=== PATIENT | female | born 1960 | race Caucasian/White ===

== ENCOUNTER 2018-11-22 16:25 | Outpatient (CLI) | payer MEDICAID, SELFPAY ==
--- NOTE | 2018-11-22 09:45 | DI.RAD_ITS ---
SYMPTOM/DIAGNOSIS: RT LOWER LOBE RALES, PNEUMONIA J18.9 PA AND LATERAL CHEST: The lungs are well expanded and free of infiltrate. There is no pleural effusion. The cardiovascular structures are intact. The mediastinum and tracheal air column are well maintained. SUMMARY: Normal chest.
== END 2018-11-22 16:45 ==
PROVIDERS: PCP Family Medicine; Visit Provider Family Medicine
DX: R09.89 Other specified symptoms and signs involving the circulatory and respiratory systems (principal); J18.9 Pneumonia, unspecified organism
CPT/HCPCS: 71046

== ENCOUNTER 2019-05-01 01:19 | Outpatient (CLI) | payer MEDICAID, SELFPAY ==
--- NOTE | 2019-05-01 06:52 | DI.US_ITS ---
SYMPTOM/DIAGNOSIS: FATTY FOOD INTOLERANCE, WITH RUQ PAIN, R10.11 ABDOMEN ULTRASOUND: There are no prior comparison exams. The liver is mildly enlarged and shows increased echogenicity consistent with fatty infiltration. No focal liver lesions or biliary dilatation is seen. The gallbladder is unremarkable, without evidence of stones or wall thickening. The pancreas, spleen, kidneys and aorta appear normal. No ascites is seen. The portal venous flow is in the appropriate direction. IMPRESSION: Mildly enlarged fatty liver. No gallbladder abnormality is seen.
== END 2019-05-01 01:39 ==
PROVIDERS: PCP Family Medicine; Visit Provider Family Medicine
DX: R10.11 Right upper quadrant pain (principal); K90.49 Malabsorption due to intolerance, not elsewhere classified; K76.0 Fatty (change of) liver, not elsewhere classified; R16.0 Hepatomegaly, not elsewhere classified
CPT/HCPCS: 76700

== ENCOUNTER 2019-05-22 16:10 | Outpatient (CLI) | payer MEDICAID, SELFPAY ==
[2019-05-22 17:22] LABS: BUN 12 mg/dL (7-18); CREATININE 1.04 mg/dL (0.55-1.02); Estimated GFR 54.05 (mL/min/1.73m2)
[2019-05-22 17:45] LABS: ESR 25 mm/hr (0-30)
[2019-05-25 12:11] LABS: SS-A Antibody 88.5 Units (<20)
[2019-05-25 12:12] LABS: SS-B (La) Ab, IgG 48.5 Units (<20)
== END 2019-05-22 16:30 ==
PROVIDERS: PCP Family Medicine; Visit Provider Otolaryngology Otolaryngology/Facial Plastic Surgery
DX: H93.A1 Pulsatile tinnitus, right ear (principal); R09.89 Other specified symptoms and signs involving the circulatory and respiratory systems; R68.2 Dry mouth, unspecified
CPT/HCPCS: 36415; 84520; 85652; 82565; 86235

== ENCOUNTER 2019-06-13 02:19 | Outpatient (CLI) | payer MEDICAID, SELFPAY ==
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
== END 2019-06-13 02:39 ==
PROVIDERS: PCP Family Medicine; Visit Provider Dietitian, Registered
DX: K75.81 Nonalcoholic steatohepatitis (NASH) (principal); Z71.3 Dietary counseling and surveillance
CPT/HCPCS: 97802

== ENCOUNTER 2019-06-21 01:43 | Outpatient (CLI) | payer MEDICAID, SELFPAY ==
--- NOTE | 2019-06-21 14:20 | DI.MRI_ITS ---
EXAM: MR ANGIO BRAIN WO CLINICAL HISTORY: PULSATILE TINNITUS OF RT EAR, H93.A1. TECHNIQUE: 3D fsps-fe-nefejz sequence was performed. COMPARISON: No exams were available for comparison FINDINGS: The [place] of [place] vasculature appears intact. There is no evidence of occlusion, aneurysm or sign ificant stenosis. The distal internal carotid arteries are unremarkable. IMPRESSION: Negative MRA of the brain.
--- NOTE | 2019-06-21 15:12 | DI.MRI_ITS ---
EXAM: MR ANGIO NECK WO/W CLINICAL HISTORY: PULSATILE TINNITUS OF RT EAR, H93.A1. TECHNIQUE: 2D and 3D beja-by-ywosja sequences were performed. COMPARISON: No exams were available for comparison FINDINGS: There is plaque at the right common carotid bulb and internal carotid artery creating a stenosis of a pproximately 75 percent. There is plaque at the proximal left internal carotid artery causing a diam eter narrowing of less than 50 percent. More distally, the internal carotid arteries are normal in d iameter. There is no evidence of dissection. The vertebral arteries appear intact. IMPRESSION: Mild stenosis of the proximal left internal carotid artery. Severe stenosis of proximal right internist al carotid.
[2019-06-21] MEDS: Gadoterate meglumine 20 ML VIAL IVP (15:26)
== END 2019-06-21 02:03 ==
PROVIDERS: PCP Family Medicine; Visit Provider Physician Assistant
DX: H93.A1 Pulsatile tinnitus, right ear (principal); I65.23 Occlusion and stenosis of bilateral carotid arteries
CPT/HCPCS: 70544; 70549

== ENCOUNTER 2020-04-10 03:39 | Outpatient (CLI) | payer MEDICAID, SELFPAY ==
[2020-04-10 09:27] LABS: ALT 30 U/L (14-59); AST 29 U/L (15-37); Albumin 3.6 g/dL (3.4-5.0); Alkaline Phosphatase 70 U/L (46-116); Anion Gap 3.9 mmol/L (3-11); BUN 15 mg/dL (7-18); Bilirubin, Total 0.5 mg/dL (0.2-1.0); CO2 31.1 mmol/L (21.0-32.0); CREATININE 0.92 mg/dL (0.55-1.02); Chloride 105 mmol/L (98-107); Glucose 79 mg/dL (74-106); Sodium 140 mmol/L (136-145); Total Protein 7.3 g/dL (6.4-8.2)
[2020-04-15 11:59] LABS: IgA 129 mg/dL (85-499); Interpretation (See Note); Tissue Transglutaminase IgA <1.2 U/mL (<4.0)
== END 2020-04-10 03:59 ==
PROVIDERS: PCP Family Medicine; Visit Provider Family Medicine
DX: K90.41 Non-celiac gluten sensitivity (principal); K75.81 Nonalcoholic steatohepatitis (NASH)
CPT/HCPCS: 36415; 80053; 82784; 83516

== ENCOUNTER 2021-10-21 02:11 | Outpatient (CLI) | payer MEDICAID, SELFPAY ==
[2021-10-21 09:44] LABS: Calculated LDL 120 mg/dL (<100); Cholesterol 191 mg/dL (<200); HDL Cholesterol 60 mg/dL (40-60); Triglyceride 59 mg/dL (<150)
[2021-10-23 05:07] LABS: Vitamin D 25 Total 31.5 ng/mL (30-100)
== END 2021-10-21 02:12 | disposition home or self-care (01) ==
PROVIDERS: PCP Family Medicine; Visit Provider Family Medicine
DX: R11.2 Nausea with vomiting, unspecified (principal); Z00.00 Encounter for general adult medical examination without abnormal findings
CPT/HCPCS: 36415; 80061; 82306

== ENCOUNTER 2021-11-27 02:29 | Outpatient (CLI) | payer MEDICAID, SELFPAY ==
--- NOTE | 2021-11-27 06:15 | DI.MAMMO_ITS ---
Exam(s) MAMMO SCREENING EXAM: MAMMO SCREENING CLINICAL HISTORY: screening,Z12.39 TECHNIQUE: Bilateral full field digital CC and MLO mammographic images were obtained with 3D tomosyn thesis and utilizing computer aided detection (CAD). COMPARISON: Available for comparison. FINDINGS: Masses/Architectural Distortion: None seen. Microcalcifications: No suspicious pleomorphic-type are seen. Skin Thickening/Nipple Retraction: None. IMPRESSION: 1. No significant interval change with no specific features of malignancy noted. 2. Unless there is more urgent need, screening mammography is recommended, as per [place] [employer] guidelines. BI-RADS Category 1 - Negative Breast Density - Category C - Heterogeneously dense Breast density category C or D implies that the patient has dense breast tissue. Dense breast tissue is very common and is not abnormal but dense breast tissue can make it harder to find cancer on a ma mmogram. Also, dense breast tissue may increase their breast cancer risk. This information about the result of the mammogram report was provided to the patient to raise their awareness. Use this report when you speak with the patient about their risks for breast cancer, which includes their family hist ory. At that time, you may recommend for more screening tests (Ultrasound or MRI) as they might be us eful based on their risk. A negative radiographic report should not delay biopsy if a dominant or clinically suspicious mass is present. Up to ten percent of cancers are not identified on mammography. A negative report may reinforce clinical impression. Adenosis and dense breasts may obscure an underlying neoplasm. False positive reports average 6 to 10%. Patient will receive a letter notifying them of these results.
== END 2021-11-27 02:49 ==
PROVIDERS: PCP Family Medicine; Visit Provider Family Medicine
DX: Z12.31 Encounter for screening mammogram for malignant neoplasm of breast; R92.8 Other abnormal and inconclusive findings on diagnostic imaging of breast
CPT/HCPCS: 77063; 77067

== ENCOUNTER 2022-01-15 02:28 | Outpatient (CLI) | payer MEDICAID, SELFPAY ==
[2022-01-15 08:30] LABS: Abs Immature Grans 0.01 10^3/uL (0.0-0.06); Absolute Basophil Count 0.02 10^3/uL (0.0-0.2); Absolute Eosinophil Count 0.16 10^3/uL (0.0-0.7); Absolute Lymphocyte Count 1.92 10^3/uL (1.2-3.4); Absolute Monocyte Count 0.54 10^3/uL (0.1-0.8); Absolute Neutrophil Count 3.06 10^3/uL (1.2-6.7); Basophils % 0.4; Eosinophils % 2.8; HGB 13.9 g/dL (11.2-15.7); Immature Grans % 0.2; Lymphocytes % 33.6; MCH 29.6 pg (27.0-33.0); MCHC 32.3 % (32.0-36.0); MCV 92 fL (80-95); MPV 9.7 fL (8.0-11.0); Monocytes % 9.5; Neutrophils % 53.5; Platelet Count 238 10^3/uL (130-400); RBC 4.69 10^6/uL (3.93-5.22); RDW 11.9 % (11.7-14.6); RDW-SD 39.8 fL; WBC 5.71 10^3/uL (4.4-10.8)
[2022-01-15 08:38] LABS: ESR 32 mm/hr (0-30)
[2022-01-15 09:43] LABS: ALT 33 U/L (14-59); AST 27 U/L (15-37); Albumin 3.7 g/dL (3.4-5.0); Alkaline Phosphatase 71 U/L (46-116); Anion Gap 8.2 mmol/L (3-11); BUN 15 mg/dL (7-18); Bilirubin, Total 0.6 mg/dL (0.2-1.0); C-Reactive Protein 0.15 mg/dL (0.0-0.3); CO2 28.8 mmol/L (21.0-32.0); Calcium 8.5 mg/dL (8.5-10.1); Chloride 104 mmol/L (98-107); Estimated GFR 56.18 (mL/min/1.73m2); Glucose 86 mg/dL (74-106); Sodium 141 mmol/L (136-145); Total Protein 7.3 g/dL (6.4-8.2)
[2022-01-16 10:56] LABS: C3 Complement 133 mg/dL (81-157); C4 Complement 25 mg/dL (13-39)
[2022-01-16 13:36] LABS: Albumin 55.5 % (55.8-66.1); Albumin g/dL 3.9 g/dL (3.6-5.2); Comment (See Note)
[2022-01-16 15:05] LABS: Immunotyping, Serum (See Note)
== END 2022-01-15 02:29 | disposition home or self-care (01) ==
LOC: LBO 02:28
PROVIDERS: PCP Family Medicine; Visit Provider Internal Medicine
DX: M35.00 Sjogren syndrome, unspecified (principal)
CPT/HCPCS: 36415; 80053; 85652; 84165; 85025; 86140; 86160; 86320

== ENCOUNTER 2022-08-06 03:38 | Outpatient (CLI) | payer MEDICAID, SELFPAY ==
[2022-08-06 07:44] LABS: Abs Immature Grans 0.01 10^3/uL (0.0-0.06); Absolute Basophil Count 0.01 10^3/uL (0.0-0.2); Absolute Eosinophil Count 0.12 10^3/uL (0.0-0.7); Absolute Lymphocyte Count 1.96 10^3/uL (1.2-3.4); Absolute Monocyte Count 0.49 10^3/uL (0.1-0.8); Basophils % 0.2; Eosinophils % 2.1; HCT 43.1 % (36.0-46.0); Immature Grans % 0.2; Lymphocytes % 35.1; MCH 30.1 pg (27.0-33.0); MCHC 32.5 % (32.0-36.0); MCV 93 fL (80-95); MPV 9.4 fL (8.0-11.0); Monocytes % 8.8; Neutrophils % 53.6; Platelet Count 244 10^3/uL (130-400); RBC 4.65 10^6/uL (3.93-5.22); RDW 11.8 % (11.7-14.6); RDW-SD 39.8 fL; WBC 5.59 10^3/uL (4.4-10.8)
[2022-08-06 07:48] LABS: Bilirubin Negative (Negative); Blood Negative (Negative); Clarity Clear (Clear); Glucose Negative (Negative); Ketones Negative (Negative); Leukocyte Esterase Trace (Negative); Nitrite Negative (Negative); Specific Gravity >= 1.030 (1.005-1.025); Urobilinogen 0.2 EU/dL (Up TO 0.2)
[2022-08-06 07:58] LABS: Bacteria Few HPF (Negative); C & S Indicated? No/Sq. Contamination; Casts Negative LPF (Negative); Crystals Negative HPF (Negative); Epithelial Cells Moderate HPF (Negative); Mucus Negative (Negative); RBC Negative HPF (0-2); WBC 0-2 HPF (0-5)
[2022-08-06 08:40] LABS: ALT 41 U/L (14-59); AST 31 U/L (15-37); Albumin 3.6 g/dL (3.4-5.0); Alkaline Phosphatase 73 U/L (46-116); Anion Gap 7.1 mmol/L (3-11); BUN 13 mg/dL (7-18); Bilirubin, Total 0.5 mg/dL (0.2-1.0); CO2 27.9 mmol/L (21.0-32.0); CREATININE 1.1 mg/dL (0.55-1.02); Chloride 100 mmol/L (98-107); Estimated GFR 56.46 (mL/min/1.73m2); Glucose 107 mg/dL (74-106); Potassium 3.4 mmol/L (3.5-5.1); Sodium 135 mmol/L (136-145)
[2022-08-06 19:05] LABS: Rheumatoid Factor 20.2 IU/mL (<12.0)
[2022-08-07 12:01] LABS: C3 Complement 144 mg/dL (81-157); C4 Complement 27 mg/dL (13-39)
[2022-08-07 15:13] LABS: Albumin 55.1 % (55.8-66.1); Albumin g/dL 4.1 g/dL (3.6-5.2); Comment (See Note); Total Protein 7.5 g/dL (6.3-8.2)
[2022-08-07 17:26] LABS: Immunotyping, Serum (See Note)
== END 2022-08-06 03:39 | disposition home or self-care (01) ==
LOC: LBO 03:38
PROVIDERS: PCP Family Medicine; Visit Provider Internal Medicine
DX: M35.00 Sjogren syndrome, unspecified (principal)
CPT/HCPCS: 36415; 80053; 81003; 81015; 84165; 85025; 86160; 86320; 86431

== ENCOUNTER 2022-10-14 11:56 | Outpatient (REF) | payer MEDICAID, SELFPAY ==
--- NOTE | 2022-10-14 11:40 | PAPFT_PTH ---
PATIENT: Kristen Brandon LOC: [facility]#:[id number] AGE/SX: 62/F ROOM: RE10/14/[address]: Lisa Anand : 1960 BED: DIS: 10/14/2022 SPEC #: [id number] RECD: 10/15/22 12:50 STATUS: ESNA REQ #: [id number] EDVIN: 10/14/22 11:[address]: Lisa Anand DEPT: [facility] Cytology RECD BY: Ligia Hughes Tissues: 1 - CX/ENDOCX FOR PAP SMEARS Procedures: PAP THIN PREP/UVM Screening HPV DNA PROBE Comments: [id number]
== END 2022-10-14 11:57 | disposition home or self-care (01) ==
LOC: LBN 11:56
PROVIDERS: PCP Family Medicine; Visit Provider Family Medicine
DX: Z12.4 Encounter for screening for malignant neoplasm of cervix (principal); Z11.51 Encounter for screening for human papillomavirus (HPV)
CPT/HCPCS: 88142; 87624

== ENCOUNTER 2023-08-19 01:49 | Outpatient (CLI) | payer MEDICAID, SELFPAY ==
--- OUTSIDE RECORDS SUMMARY | 2023-08-19 01:52 | XMS_ITS | Continuity of Care Document ---
Author Name Unknown Organization [facility] Address [address] [place] [id number] Encounter [facility] NBR [id number] Date(s): 12/26/22 - 12/26/[address] [id number]- Discharge Disposition: Home or Self Care Attending Physician: Claudio Thomson Admitting Physician: Claudio Thomson
[2023-08-19 10:26] LABS: Absolute Basophil Count 0.02 10^3/uL (0.0-0.2); Absolute Eosinophil Count 0.09 10^3/uL (0.0-0.7); Absolute Lymphocyte Count 1.78 10^3/uL (1.2-3.4); Absolute Monocyte Count 0.42 10^3/uL (0.1-0.8); Absolute Neutrophil Count 2.89 10^3/uL (1.2-6.7); Basophils % 0.4; Eosinophils % 1.7; HCT 42.7 % (36.0-46.0); HGB 14.1 g/dL (11.2-15.7); Lymphocytes % 34.2; MCH 30.7 pg (27.0-33.0); MCV 93 fL (80-95); Monocytes % 8.1; Neutrophils % 55.6; Platelet Count 240 10^3/uL (130-400); RDW-SD 40.4 fL
[2023-08-19 10:28] LABS: ESR 10 mm/hr (0-30)
[2023-08-19 10:37] LABS: Bilirubin Negative (Negative); Blood Negative (Negative); Clarity Turbid (Clear); Glucose Negative (Negative); Ketones Negative (Negative); Leukocyte Esterase Negative (Negative); Nitrite Negative (Negative); Specific Gravity 1.025 (1.005-1.025); Urobilinogen 0.2 mg/dL (Up to 0.2)
[2023-08-19 10:55] LABS: ALT 34 U/L (14-59); AST 23 U/L (15-37); Albumin 3.6 g/dL (3.4-5.0); Alkaline Phosphatase 67 U/L (46-116); Anion Gap 6.4 mmol/L (3-11); BUN 13 mg/dL (7-18); Bilirubin, Total 0.6 mg/dL (0.2-1.0); CO2 30.6 mmol/L (21.0-32.0); Calcium 9.3 mg/dL (8.5-10.1); Chloride 102 mmol/L (98-107); Estimated GFR 62.91 (mL/min/1.73m2); Glucose 92 mg/dL (74-106); Potassium 3.7 mmol/L (3.5-5.1); Sodium 139 mmol/L (136-145)
[2023-08-19 19:58] LABS: Rheumatoid Factor 19.6 IU/mL (<12.0)
[2023-08-20 12:45] LABS: Albumin 54.6 % (55.8-66.1); Albumin g/dL 4.2 g/dL (3.6-5.2); Total Protein 7.7 g/dL (6.3-8.2)
[2023-08-23 18:34] LABS: Immunoglobulin Subclass IgG4 93.9 mg/dL
== END 2023-08-19 01:50 | disposition home or self-care (01) ==
LOC: LBO 01:49
PROVIDERS: PCP Family Medicine; Visit Provider Internal Medicine
DX: M35.01 Sjogren syndrome with keratoconjunctivitis (principal)
CPT/HCPCS: 80053; 82787; 85652; 81003; 84165; 85025; 86431

== ENCOUNTER 2024-06-23 02:02 | Outpatient (CLI) | payer MEDICARE, SELFPAY ==
[2024-06-23 13:00] LABS: Abs Immature Grans 0.02 10^3/uL (0.0-0.06); Absolute Basophil Count 0.03 10^3/uL (0.0-0.2); Absolute Lymphocyte Count 2.27 10^3/uL (1.2-3.4); Absolute Neutrophil Count 2.99 10^3/uL (1.2-6.7); Basophils % 0.5 %; Eosinophils % 1.7 %; HCT 41.9 % (36.0-46.0); HGB 13.2 g/dL (11.2-15.7); Immature Grans % 0.3 %; Lymphocytes % 38.4 %; MCH 30.3 pg (27.0-33.0); MCHC 31.5 % (32.0-36.0); MCV 96 fL (80-95); MPV 9.9 fL (8.0-11.0); Monocytes % 8.5 %; Neutrophils % 50.6 %; Platelet Count 228 10^3/uL (130-400); RBC 4.36 10^6/uL (3.93-5.22); RDW 11.9 % (11.7-14.6); RDW-SD 42.1 fL; WBC 5.91 10^3/uL (4.4-10.8)
[2024-06-23 13:11] LABS: ESR 9 mm/hr (0-30)
[2024-06-23 13:22] LABS: ALT 32 U/L (14-59); AST 29 U/L (15-37); Albumin 3.5 g/dL (3.4-5.0); Alkaline Phosphatase 85 U/L (46-116); Anion Gap 5.8 mmol/L (3-11); BUN 7 mg/dL (7-18); Bilirubin, Total 0.41 mg/dL (0.2-1.0); CO2 31.2 mmol/L (21.0-32.0); CREATININE 0.9 mg/dL (0.55-1.02); Calcium 9.1 mg/dL (8.5-10.1); Chloride 106 mmol/L (98-107); Estimated GFR 70.95 (mL/min/1.73m2); Glucose 86 mg/dL (74-106); Sodium 143 mmol/L (136-145); Total Protein 7.6 g/dL (6.4-8.2)
[2024-06-23 13:26] LABS: C-Reactive Protein < 0.50 mg/dL (<or=0.5)
[2024-06-23 13:30] LABS: Bilirubin Negative (Negative); Blood Negative (Negative); Clarity Cloudy (Clear); Glucose Negative (Negative); Ketones Negative (Negative); Leukocyte Esterase Trace (Negative); Nitrite Negative (Negative); Urobilinogen 0.2 mg/dL (Up to 0.2); pH 5.5 (5-8)
[2024-06-23 13:53] LABS: Bacteria Many HPF (Negative); C & S Indicated? No/Sq. Contamination; Casts Negative LPF (Negative); Crystals Negative HPF (Negative); Epithelial Cells Many HPF (Negative); Mucus Negative (Negative); RBC 0-2 HPF (0-2)
[2024-06-24 12:15] LABS: IgA 401 mg/dL (85-499); IgG 1335 mg/dL (610-1616); IgM 92 mg/dL (35-242)
[2024-06-26 14:34] LABS: Albumin 57.1 % (55.8-66.1); Albumin g/dL 4.1 g/dL (3.6-5.2); Total Protein 7.1 g/dL (6.3-8.2)
== END 2024-06-23 02:03 | disposition home or self-care (01) ==
PROVIDERS: PCP Family Medicine; Visit Provider Internal Medicine
DX: M35.00 Sjogren syndrome, unspecified (principal)
CPT/HCPCS: 36415; 80053; 82784; 85652; 81003; 81015; 84165; 85025; 86140

== ENCOUNTER 2024-10-27 10:01 | Outpatient (CLI) | payer MEDICARE, SELFPAY ==
[2024-10-27 12:36] LABS: Anion Gap 8.8 mmol/L (3-11); BUN 11 mg/dL (7-18); CO2 29.2 mmol/L (21.0-32.0); Calcium 9.3 mg/dL (8.5-10.1); Chloride 104 mmol/L (98-107); Estimated GFR 62.52 (mL/min/1.73m2); Glucose 108 mg/dL (74-106); Potassium 3.6 mmol/L (3.5-5.1); Sodium 142 mmol/L (136-145)
[2024-10-30 10:52] LABS: Hepatitis C Ab w Rflx HCV PCR Negative (Negative)
== END 2024-10-27 10:02 | disposition home or self-care (01) ==
LOC: LOS 10:02
PROVIDERS: PCP Family Medicine; Referring Provider Family Medicine; Visit Provider Family Medicine
DX: Z13.1 Encounter for screening for diabetes mellitus (principal); Z11.59 Encounter for screening for other viral diseases; Z23 Encounter for immunization; Z12.11 Encounter for screening for malignant neoplasm of colon; M35.05 Sjogren syndrome with inflammatory arthritis
CPT/HCPCS: 36415; 80048; 86803

== ENCOUNTER 2024-11-02 02:07 | Outpatient (CLI) | payer MEDICARE, SELFPAY ==
--- NOTE | 2024-11-02 07:30 | DI.DEXA_ITS ---
Exam(s) XR DEXA BONE DENSITY W/WO MARIA ELENA EXAM: XR DEXA BONE DENSITY W/WO MARIA ELENA CLINICAL HISTORY: Screening,menopausal disorder,n95.9 TECHNIQUE: [employer] C densitometer analysis of left hip, lumbar spine and left forearm. Lat eral survey image of the thoracic and lumbar spine. COMPARISON: DX DEXA BONE DENSITY WITH MARIA ELENA from 07/23/2014 FINDINGS: Lateral view of the thoracic and lumbar spine shows no evidence of compression fractures. Bone mineral density measurements of the lumbar spine correspond to a total T-score of -0.7, in the normal range, not significantly changed from prior. Bone mineral density measurements of the left hip correspond to a total T-score of 5.6 decrease from prior . The femoral neck T-score is -1.6, in the osteopenic range.. Theleft forearm bone mineral density measurements correspond to a T-score of the distal 3rd of -1.5, in the osteopenic range.. IMPRESSION: Normal bone mineral density of the lumbar spine. Osteopenia of the hip and forearm.
--- NOTE | 2024-11-02 08:00 | DI.MAMMO_ITS ---
Exam(s) MAMMO SCREENING EXAM: MAMMO SCREENING CLINICAL HISTORY: screening,z12.39 TECHNIQUE: Mammograms were interpreted according to the usual protocol including computer analysis w [employer] CAD system, tomosynthesis and C-view imaging. COMPARISON: No exams were available for comparison FINDINGS: The breasts are composed of scattered fibroglandular densities, Breast Density category B. No suspicious masses or suspicious microcalcifications are seen. Stable areas of nodularity in the m edial right breast. No skin thickening or abnormal axillary lymph nodes are seen. There has been no significant change from prior exams. IMPRESSION: BI-RADS Category 2 - Benign Findings Yearly screening mammography is recommended. Breast Density - Category B, scattered fibroglandular densities. A negative radiographic report should not delay biopsy if a dominant or clinically suspicious mass is present. Up to ten percent of cancers are not identified on mammography. A negative report may reinforce clinical impression. Adenosis and dense breasts may obscure an underlying neoplasm. False positive reports average 6 to 10%. Patient will receive a letter notifying them of these results.
== END 2024-11-02 02:27 ==
PROVIDERS: PCP Family Medicine; Visit Provider Family Medicine
DX: N95.9 Unspecified menopausal and perimenopausal disorder (principal); Z12.31 Encounter for screening mammogram for malignant neoplasm of breast; Z13.820 Encounter for screening for osteoporosis; M85.89 Other specified disorders of bone density and structure, multiple sites
CPT/HCPCS: 77063; 77067; 77080

== ENCOUNTER 2025-01-08 03:09 | Outpatient (CLI) | payer MEDICARE, SELFPAY ==
[2025-01-08 12:25] LABS: ESR 9 mm/hr (0-30)
[2025-01-08 12:44] LABS: Bilirubin Negative (Negative); Blood Negative (Negative); Clarity Clear (Clear); Glucose Negative (Negative); Ketones Negative (Negative); Leukocyte Esterase Negative (Negative); Nitrite Negative (Negative); Urobilinogen 0.2 mg/dL (Up to 0.2)
[2025-01-08 17:59] LABS: Rheumatoid Factor 18.3 IU/mL (<12.0)
[2025-01-09 14:32] LABS: Albumin 55.9 % (55.8-66.1); Total Protein 7.1 g/dL (6.3-8.2)
[2025-01-10 11:22] LABS: Immunoglobulin Subclass IgG4 82.7 mg/dL
== END 2025-01-08 03:10 | disposition home or self-care (01) ==
PROVIDERS: PCP Family Medicine; Visit Provider Internal Medicine
DX: M35.00 Sjogren syndrome, unspecified (principal); M35.01 Sjogren syndrome with keratoconjunctivitis
CPT/HCPCS: 36415; 82787; 85652; 81003; 84165; 86431

== ENCOUNTER 2025-05-23 01:42 | Outpatient (CLI) | payer MEDICARE, SELFPAY ==
--- NOTE | 2025-05-23 09:37 | DI.RAD_ITS ---
Exam(s) XR FOOT LT COMPLETE EXAM: XR FOOT LT COMPLETE CLINICAL HISTORY: Left foot pain,m79.62. TECHNIQUE: 2D digital imaging was performed. COMPARISON: No exams were available for comparison FINDINGS: 3 views No evidence of fracture or diastasis of the Lisfranc joint. No obvious degenerative changes nor erosions. Bone density normal. Medial aspect of the foot there is a E calcific density noted measuring 9 x 6 mm. This is associated with the medial aspect the distal calcaneus. Recommend additional oblique view to determine if this is an accessory ossicle off the navicular tuberosity or an normal bone excrescence off of the distal calcaneus. IMPRESSION: Additional external oblique view required, as described above. DATA REPOSITORY: RADIATION DOSE DELIVERED:
== END 2025-05-23 02:02 ==
PROVIDERS: PCP Family Medicine; Visit Provider Podiatrist
DX: M25.572 Pain in left ankle and joints of left foot (principal); M72.2 Plantar fascial fibromatosis; M67.02 Short Achilles tendon (acquired), left ankle
CPT/HCPCS: 20550; 20600; J0702; J1100; 73630